=== PATIENT | female | born 1990 | race Caucasian/White ===

== ENCOUNTER → 2019-04-06 | Outpatient (CLI) | payer MEDICAID | END | disposition home or self-care (01) | LOC: LABWHC1 14:19 | PROVIDERS: ATTEND Dermatology | DX: L70.0 Acne vulgaris (principal) | CPT/HCPCS: 36415; 84702 ==

== ENCOUNTER → 2019-05-12 | Outpatient (CLI) | payer MEDICAID ==
[2019-05-12 10:12] LABS: Basophils % (A) 1 %; Eosinophils # (A) 0.2 k/uL (0-0.7); Eosinophils % (A) 3 %; HCT 43.1 % (34.0-46.0); HGB 14.1 gm/dL (11.4-16.0); Lymphocytes % (A) 29 %; MCH 31.9 pg (25.0-35.0); MCHC 32.8 g/dL (31.0-37.0); MCV 97.2 fL (80.0-100.0); Mean Platelet Volume 9.7; Monocytes # (A) 0.3 k/uL (0-1.0); Monocytes % (A) 5 %; Neutrophils # (A) 4.1 k/uL (1.3-7.7); Neutrophils % (A) 61 %; Platelet Count 119 k/uL (150-450); RBC 4.43 m/uL (3.80-5.40); RDW 12.4 % (11.5-15.5); WBC 6.8 k/uL (3.8-10.6)
[2019-05-12 10:20] LABS: HCG,Qualitative Serum Not Detected
[2019-05-12 16:51] LABS: ALT 16 U/L (8-44); AST 22 U/L (13-35); Cholesterol 158 mg/dL (0-200)
== END | disposition home or self-care (01) ==
LOC: LABWHC1 09:20
PROVIDERS: ATTEND Dermatology
DX: L70.0 Acne vulgaris (principal)
CPT/HCPCS: 36415; 82465; 84450; 84460; 84478; 84703; 85025

== ENCOUNTER 2020-03-23 09:56 | Day surgery (SDC) | payer BC, MEDICAID ==
[2020-03-22 10:44] VITALS: BMI 24.3
[2020-03-23 10:36] VITALS: TEMP 98.3
[2020-03-23] MEDS ORDERED: LACTATED RINGERS 1,000 ML IV ONE (10:45)
[2020-03-23] MEDS ORDERED: LIDOCAINE 1% INJ 10MG/ML (20 ML MDV) ONE (11:25)
[2020-03-23] MEDS ORDERED: PROPOFOL 10 MG/ML 20 ML VIAL IV ONE (11:25)
--- NOTE | 2020-03-23 11:33 | P.PCN ---
Date of Procedure: 03/23/20 Procedure(s) Performed: BRIEF HISTORY: Patient is a 29-year-old, pleasant, white female scheduled for an upper endoscopy as a part of evaluation of epigastric burning pain for the last few months duration. She has prior history of perforated duodenal ulcer 2 years ago and since then has been on Protonix 40 mg twice daily. Denies any recent NSAID use.. PROCEDURE PERFORMED: Esophagogastroduodenoscopy with biopsy. PREOPERATIVE DIAGNOSIS: Epigastric burning pain for last few months duration. IV sedation per anesthesia. PROCEDURE: After informed consent was obtained, the patient was brought into the endoscopy unit. IV sedation was administered by Anesthesia under continuous monitoring. Initially the Olympus GIF-140 video endoscope was inserted into the mouth. Esophagus intubated without any difficulty. It was gradually advanced into the stomach and duodenum and carefully examined. The bulb and the second part of the duodenum appeared normal. The scope at this time was withdrawn to the stomach, adequately insufflated with air, and upon careful examination, mucosa of the antrum, had scattered erosions and biopsies were done from this area. The body, cardia and the fundus appeared normal. The scope was then withdrawn into the esophagus. Small hiatal hernia noted. The GE junction was located at 35 cm from the incisors. The esophagus appeared normal. There were no erosions or ulcerations seen , biopsies were done from the distal esophagus and the patient tolerated the procedure well. IMPRESSION: 1. Antral erosive gastritis. 2. And hiatal hernia but no evidence of esophagitis or Helm's esophagus. RECOMMENDATIONS: The findings of this examination were discussed with the patient as well as a family. She was advised to follow with the biopsy results. She will continue with Protonix 40 mg twice daily and follow antireflux measures
[2020-03-23] MEDS ORDERED: ONDANSETRON 4 MG/2 ML VIAL ONE (11:47)
[2020-03-23] MEDS ORDERED: ONDANSETRON 4 MG/2 ML VIAL IVP ONE (11:49)
[2020-03-23 12:14] VITALS: BP 113/63; PULSE 70; RESP 16
== END 2020-03-23 12:27 | disposition home or self-care (01) ==
LOC: ORWHC2ENDO 09:56
PROVIDERS: ATTEND Internal Medicine Gastroenterology
DX: K29.60 Other gastritis without bleeding (principal); K44.9 Diaphragmatic hernia without obstruction or gangrene; K21.9 Gastro-esophageal reflux disease without esophagitis; F17.210 Nicotine dependence, cigarettes, uncomplicated; Z87.11 Personal history of peptic ulcer disease; Z79.891 Long term (current) use of opiate analgesic; Z79.899 Other long term (current) drug therapy; Z88.0 Allergy status to penicillin; Z98.890 Other specified postprocedural states; Z87.42 Personal history of other diseases of the female genital tract
CPT/HCPCS: 81025; 88305; 43239; J2405; J2001; J2704

== ENCOUNTER → 2021-05-03 | Outpatient (CLI) | payer OTHER ==
--- NOTE | 2021-05-03 10:20 | MM ---
Reason for exam: clinical finding. Baseline mammogram. History: Took hormonal contraceptives for 13 years. Indicated problem(s): lump or thickening in both breasts. Physical Findings: Nurse Summary: 1cm nodule in the right breast at 11 o'clock and a 1cm nodule in the left breast at 1 o'clock (nurse mj). MG 3D Diag Mammo W/Cad YOANA Bilateral CC, MLO, and XCCL view(s) were taken. Focal asymmetry questionably at palpable markers, ultrasound negative. These results were verbally communicated with the patient and result sheet given to the patient on 05/03/21. ASSESSMENT: Probably benign, BI-RAD 3 RECOMMENDATION: Follow-up diagnostic mammogram of both breasts in 6 months.
--- NOTE | 2021-05-03 10:20 | USB ---
Reason for exam: clinical finding. History: Took hormonal contraceptives for 13 years. US Breast Limited BILAT Right limited breast ultrasound including focal area of concern, retroareolar and axilla demonstrates no cystic or solid lesion seen. Left limited breast ultrasound including focal area of concern, retroareolar and axilla demonstrates no cystic or solid lesion seen. These results were verbally communicated with the patient and result sheet given to the patient on 05/03/21. ASSESSMENT: Negative, BI-RAD 1 RECOMMENDATION: Follow-up diagnostic mammogram of both breasts in 6 months. Manage patient on a clinical basis.
== END | disposition home or self-care (01) ==
LOC: RADMAMWWP 08:17
PROVIDERS: ATTEND Family Medicine
DX: R92.8 Other abnormal and inconclusive findings on diagnostic imaging of breast (principal)
CPT/HCPCS: 77062; 77066

== ENCOUNTER → 2023-04-15 | Outpatient (CLI) | payer BC ==
[2023-04-15 12:27] LABS: HCG,Quantitative Serum 109.6 mIU/mL
== END | disposition home or self-care (01) ==
LOC: LABWHC1 11:31
PROVIDERS: ATTEND Family Medicine
DX: Z33.1 Pregnant state, incidental (principal)
CPT/HCPCS: 36415; 84144; 84439; 84443; 84481; 84702

== ENCOUNTER → 2023-04-17 | Outpatient (CLI) | payer BC | END | disposition home or self-care (01) | LOC: LABWHC1 12:32 | PROVIDERS: ATTEND Family Medicine | DX: Z33.1 Pregnant state, incidental (principal) | CPT/HCPCS: 36415; 84702 ==

== ENCOUNTER → 2023-04-19 | Outpatient (CLI) | payer BC ==
--- NOTE | 2023-04-19 09:42 | US ---
EXAMINATION TYPE: Transabdominal DATE OF EXAM: 04/19/2023 9:23 AM COMPARISON: NONE CLINICAL INDICATION: Female, 32 years old with history of O26.859 SPOTTING COMPLICATING , UN SPECIFI; Pt states 1 day of spotting, HCG levels slowly rising, recent fertility treatments EXAM PERFORMED: Transvaginal (TV) and Transabdominal (TA) EXAM MEASUREMENTS: GESTATIONAL AGE / DATING Physician Established: Not yet established Dates by LMP: (5 weeks/1 days) EDC: 12/19/2023 Dates by First Scan: No previous this is first scan Dates by Current Scan for: No IUP seen at this time, endo thickness= 0.6 cm MATERNAL ANATOMY Uterus: 7.1 x 4.2 x 4.4 cm Right Ovary: 3.7 x 2.5 x 3.4 cm Left Ovary: 3.8 x 2.7 x 3.8 cm Post CDS / Adnexa: wnl Presence of free fluid: No Presence of corpus luteal cyst: Multiple cystic lesions bilaterally, consistent with pt's history of fertility treatments, largest on right ovary= 2.1 x 1.5 x 2.0 cm, largest on left ovary= 2.7 x 1.8 x 2.5 cm Presence of subchorionic bleed: No GESTATION / SURVEY IUP: No IUP seen at this time Date of LMP: 03/14/2023 Beta HcG (if available): No evidence of IUP at this time, other findings listed above IMPRESSION: 1. No intrauterine identified at this time which could reflect normal early IUP. No spontan eous or ectopic not excluded. Correlate with serial beta hCG and/or ultrasound. 2. Cystic ovarian lesions as discussed.
== END | disposition home or self-care (01) ==
LOC: RADUSWWP 08:51
PROVIDERS: ATTEND Family Medicine
DX: O26.859 Spotting complicating pregnancy, unspecified trimester (principal); N83.209 Unspecified ovarian cyst, unspecified side; Z3A.00 Weeks of gestation of pregnancy not specified
CPT/HCPCS: 76801; 76817; 84144; 84702

== ENCOUNTER → 2023-08-27 | Outpatient (CLI) | payer BC ==
[2023-08-27 10:40] LABS: Luteinizing Hormone 5.2 mIU/mL
== END | disposition home or self-care (01) ==
LOC: LABWHC1 07:26
PROVIDERS: ATTEND Obstetrics & Gynecology Reproductive Endocrinology
DX: Z31.83 Encounter for assisted reproductive fertility procedure cycle (principal)
CPT/HCPCS: 36415; 82670; 83002; 84144

== ENCOUNTER → 2024-05-13 | Outpatient (CLI) | payer BC ==
--- NOTE | 2024-05-13 13:44 | MM ---
Reason for Exam: Clinical finding. Last mammogram was performed 3 year(s) and 1 month(s) ago. Patient History: Menarche at age 16. Patient has no children. Patient used Hormonal Contraceptives for 13 years. Tissue Density: The breasts are heterogeneously dense, which may obscure small masses. Findings: Analyzed By CAD. Bilateral palpable marker is placed superiorly. Areas of asymmetric density remain unchanged. There is an 8 mm nodule seen at the left axilla not identified previously with a internal irregular calcifications. Otherwise, no significant change. Overall Assessment: Incomplete: need additional imaging evaluation, BI-RAD 0 Management: Diagnostic Breast Ultrasound of both breasts. [facility], , 05/13/2024 1:41 PM. Electronically signed and approved by: Eric Hill M.D. Radiologist
== END | disposition home or self-care (01) ==
LOC: RADMAMWWP 13:08
PROVIDERS: ATTEND Family Medicine
DX: N63.10 Unspecified lump in the right breast, unspecified quadrant (principal); R92.333 Mammographic heterogeneous density, bilateral breasts; Z92.0 Personal history of contraception
CPT/HCPCS: 77062; 77066

== ENCOUNTER → 2024-05-15 | Outpatient (CLI) | payer BC ==
--- NOTE | 2024-05-15 07:39 | USB ---
Reason for Exam: Clinical finding. Patient History: Menarche at age 16. Patient has no children. Patient used Hormonal Contraceptives for 13 years. Technique: Method: Targeted. Doppler: Color. Patient Position: Supine. Prior Study Comparison: 05/03/2021 Bilateral Diagnostic Mammogram, [facility]. 05/13/2024 Bilateral MG 3D diag mammo w/cad YOANA, [facility]. Findings: The upper outer quadrant of the left breast, the area of palpable concern of the right breast, the axilla of both breasts and the retroareolar of both breasts were scanned. Right: Targeted ultrasound at the patient's 10:00 palpable site including scanning of the subareolar region and axilla. There is a 2.9 cm focal island of dense tissue at 10:00, 8 cm from the nipple corresponding to one of the palpable site and a second dense island of fibroglandular tissue at 10:00, 4 cm from the nipple measuring 2.7 cm. Otherwise, no solid or cystic lesion or axillary adenopathy. Left: Targeted ultrasound upper outer quadrant 12:00 to 2:00 including scanning of the subareolar region and axilla. Patient unable to pinpoint the exact site of previous palpated abnormality at this time. No solid or cystic lesion is seen. There is a prominent but nonenlarged subpectoral lymph node noted measuring 2.1 x 1.3 x 0.6 cm. Unclear if this corresponds to the mammographic finding. No axillary adenopathy by size criteria. Overall Assessment: Probably benign, BI-RAD 3 Management: Diagnostic Mammogram of the left breast in 6 months. A clinical breast exam by your physician is recommended on an annual basis and results should be correlated with mammographic findings. This exam should not preclude additional follow-up of suspicious palpable abnormalities. Results were given to the patient verbally at the time of exam. [facility], , 05/15/2024 7:30 AM. Electronically signed and approved by: Eric Hill M.D. Radiologist
== END | disposition home or self-care (01) ==
LOC: RADUSWWP 07:00
PROVIDERS: ATTEND Family Medicine
DX: R92.8 Other abnormal and inconclusive findings on diagnostic imaging of breast (principal); Z92.0 Personal history of contraception